=== PATIENT | male | born 1995 | race African-American/Black ===

== ENCOUNTER 2017-08-08 12:16 | Emergency (ER) | payer MEDICAID ==
[~2017-08-08] VITALS: Ht 175.3 cm; Wt 68.0 kg
[2017-08-08 13:10] VITALS: BP 120/79
[2017-08-08] MEDS ORDERED: PROMETHAZINE-D118 ML ORAL (13:29)
[2017-08-08] MEDS ORDERED: IBUPROFEN600 MG ORAL (13:29)
[2017-08-08 13:43] VITALS: BP 110/75
--- NOTE | 2017-08-08 22:54 | Emergency Room Report ---
History of Present Illness General Chief Complaint: Upper Respiratory Illness Source: Patient Present Illness HPI The patient is a 22-year-old male presenting for cough for the past week. He admits to subjective fever initially which has now resolved. Cough only remains. He denies other symptoms including shortness of breath, wheezing, rash , headache, myalgia, chest pain Allergies: Coded Allergies: No Known Allergies (Unverified , 08/08/17) Patient History Past Medical History: see triage record Pertinent Family History: none Reviewed Nursing Documentation: PMH: Agreed, PSxH: Agreed Nursing Documentation-PMH Past Medical History: No Stated History Review of Systems All Other Systems: negative except mentioned in HPI Physical Exam Vital Signs Date Time Temp Pulse Resp B/P (MAP) Pulse Ox O2 Delivery O2 Flow Rate FiO2 08/08/17 12:55 97.9 82 16 118/76 100 Room Air Sp02 EP Interpretation: reviewed, normal General Appearance: no apparent distress, alert, GCS 15, non-toxic Head: normocephalic, atraumatic ENT: hearing grossly normal, normal pharynx, no angioedema, normal voice, uvula midline Neck: full range of motion, supple/symm/no masses Respiratory: chest non-tender, lungs clear, normal breath sounds, speaking full sentences Cardiovascular #1: regular rate, rhythm, no edema Musculoskeletal: back normal, gait/station normal, normal range of motion, non- tender Neurologic: alert, oriented x3, responsive, motor strength/tone normal, sensory intact, speech normal Psychiatric: judgement/insight normal, memory normal, mood/affect normal, no suicidal/homicidal ideation Skin: normal color, no rash, warm/dry, well hydrated Lymphatic: adenopathy Medical Decision Making PA Attestation Dr. Stahl is my supervising physician. Patient management was discussed with my supervising physician Diagnostic Impression: Primary Impression: Upper respiratory infection Qualified Codes: J06.9 - Acute upper respiratory infection, unspecified ER Course The patient is a 22-year-old male presenting for cough for the past week Differential diagnosis include but not limited to pharyngitis, sinusitis, AOM, bronchitis, PNA PE: afebrile. No tachypnea. No apparent distress. No TTP over maxillary or frontal sinuses. Lungs: CTA bilat. No resp distress Heart: RRR, no abnormal heart sounds Ears: external auditory canal clear. Non erythematous. Bilat TM intact. Cone of light present bilat. No bulging of TM. No serous fluid seen. no nasal D/C + cervical lymphad No tonsillar exudate. Uvula midline.Oropharynx non erythematous The patient will be discharged home with a prescription for cough medication Last Vital Signs Date Time Temp Pulse Resp B/P (MAP) Pulse Ox O2 Delivery O2 Flow Rate FiO2 08/08/17 13:43 78 16 110/75 99 Room Air 08/08/17 13:10 98.0 Status: improved Disposition: HOME, SELF-CARE Condition: Improved Scripts D-Methorphan Hb/Prometh Hcl* (PROMETHAZINE-DM SYRUP*) 118 Ml Syrup 5 ML ORAL Q6H Y for For Cough, #118 ML 0 Refills Prov: VALENTINA CASTAÑEDA 08/08/17 Ibuprofen* (MOTRIN*) 600 Mg Tablet 600 MG ORAL Q8H Y for For Pain, #30 TAB 0 Refills Prov: VALENTINA CASTAÑEDA 08/08/17 Referrals: NOT CHOSEN IPA/MD,REFERRING (PCP) Patient Instructions: Upper Respiratory Infection, Adult Additional Instructions: I discussed my findings with the patient. All questions and concerns have been answered. Treatment and medication compliance have been addressed. I advised the patient that they need to follow up with PMD in 3-5 days. Return to ED if pain remains or worsens, cough worsens or remains, you notice blood in your sputum, you notice wheezing, you experience a fever, or if needed for any reason. Patient verbalized understanding of discharge instructions. VALENTINA CASTAÑEDA Aug 08, 2017 22:54
== END 2017-08-08 13:43 | disposition home or self-care (01) ==
LOC: EMR 12:58
DX: J06.9 Acute upper respiratory infection, unspecified (principal)
CPT/HCPCS: 99283